=== PATIENT | male | born 1970 | race Caucasian/White ===

== ENCOUNTER 2017-10-25 18:37 | Inpatient (IN) | payer SELFPAY ==
[~2017-10-25] VITALS: Ht 170.2 cm; Wt 61.7 kg
[~2017-10-25 18:37] MED LIST: CLIN300C11 PO; DIPHEN/ATROPINE; GABA-529; LEVVL; NAPR-681
[2017-10-25] MEDS ORDERED: BACITRACIN ZINC OINT UDPKT TOP ONE (18:45)
[2017-10-25] MEDS ORDERED: LIDOCAINE HCL 1% 20ML VIAL (Pyxis) INJ MC ONE (18:45)
[2017-10-25 19:32] LABS: BASOPHILS % 1.5 % (0.0-2.0); EOSINOPHILS % 6.1 % (0.0-5.0); HEMOGLOBIN. 11.5 g/dL (14.0-18.0); LYMPHOCYTES % 22.1 % (20.0-50.0); MEAN CORPUSCULAR HEMOGLOBIN 28.5 pg (28.0-32.0); MEAN CORPUSCULAR VOLUME 84.7 fL (80.0-94.0); MEAN PLATELET VOLUME 8.9 fl (7.4-10.4); MONOCYTES % 8.5 % (2.0-8.0); NEUTROPHILS % 61.8 % (40.0-76.0); PLATELET 284 x1000/uL (130-400); RED BLOOD CELL COUNT 4.02 mill/uL (4.7-6.1); RED CELL DISTRIBUTION WIDTH 13.7 % (11.6-14.6)
[2017-10-25 19:38] LABS: CHLORIDE 105 mEq/L (98-107)
[2017-10-26] MEDS ORDERED: SODIUM CHLORIDE 0.9% 1,000 ML IV ONE (05:44)
[2017-10-26] MEDS ORDERED: MORPHINE SULFATE 4 MG/ML CPJ (NOT FOR IM USE) IV STA (05:44)
[2017-10-26] MEDS ORDERED: ONDANSETRON HCL 4MG/2ML VIAL IV STA (05:44)
[2017-10-26] MEDS ORDERED: VANCOMYCIN 1 G PREMIX 200 ML IV ONE (05:45)
[2017-10-26] MEDS ORDERED: PIPERACILLIN/TAZ 3.375G PREMIX 50 ML IV ONE (05:45)
[2017-10-26] MEDS ORDERED: ZOLPIDEM TARTRATE 5MG TABLET PO PRN (07:30)
[2017-10-26] MEDS ORDERED: DOCUSATE SODIUM 100MG CAPSULE PO PRN (07:30)
[2017-10-26] MEDS ORDERED: GUAIFENESIN 200MG/10ML SUGAR FREE UDC PO PRN (07:30)
[2017-10-26] MEDS ORDERED: ACETAMINOPHEN 325MG TABLET PO PRN (07:30)
[2017-10-26] MEDS ORDERED: KETOROLAC 15MG/ML VIAL IV PRN (07:30)
[2017-10-26] MEDS ORDERED: IPRATROPIUM/ALBUTEROL 0.5-3(2.5)MG/3ML NEB INH PRN (07:30)
[2017-10-26] MEDS ORDERED: ONDANSETRON HCL 4MG/2ML VIAL IV PRN (07:30)
[2017-10-26] MEDS ORDERED: MAGNESIUM/ALUMINUM HYDROXIDE/SIMETHICONE 30ML UDC PO PRN (07:30)
[2017-10-26] MEDS ORDERED: DIPHENHYDRAMINE 50MG/ML VIAL IV PRN (07:30)
[2017-10-26] MEDS ORDERED: NA PHOS,M-B/NA PHOS,DI-BA ENEMA 118ML PR PRN (07:30)
[2017-10-26] MEDS ORDERED: LORAZEPAM 0.5MG TABLET PO PRN (07:30)
[2017-10-26] MEDS ORDERED: CLONIDINE 0.1MG TABLET PO PRN (07:30)
[2017-10-26] MEDS ORDERED: FAMOTIDINE 20MG TABLET PO SCH (09:00)
[2017-10-26] MEDS ORDERED: PIPERACILLIN/TAZ 3.375G PREMIX 50 ML IV SCH (11:00)
[2017-10-26] MEDS ORDERED: VANCOMYCIN 1500MG in DEXTROSE 5% WATER 250ML IV SCH (12:00)
[2017-10-26] MEDS: ENOXAPARIN 40MG/0.4ML SYR SUBCUT SCH (12:10)
[2017-10-26] MEDS ORDERED: VANCOMYCIN 1 G PREMIX 200 ML IV SCH ×4 (14:00→21:00)
[2017-10-26] MEDS ORDERED: NITROGLYCERIN 0.4MG TABLET SL SL PRN ×2 (14:15→19:45)
[2017-10-26 17:00] VITALS: BP 139/76
[2017-10-26] MEDS ORDERED: DEXTROSE 50% WATER 50ML SYRINGE IV PRN (19:15)
[2017-10-26 20:00] VITALS: BP 132/75
[2017-10-26] MEDS ORDERED: OMEP20CA10 MT (20:15)
[2017-10-26] MEDS ORDERED: METF500T6 MT (20:15)
[2017-10-26] MEDS ORDERED: LOSA1TAB37 MT (20:15)
[2017-10-26] MEDS ORDERED: ASPI-1159 MT (20:15)
[2017-10-26] MEDS ORDERED: INSU100I24 SQ (20:15)
[2017-10-26] MEDS: INSULIN LISPRO 100 UNITS/ML SUBCUT SCH (21:00)
[2017-10-26] MEDS: BLOOD SUGAR DIAGNOSTIC STRIP TEST SCH (21:42)
[2017-10-26] MEDS: PIPERACILLIN/TAZ 3.375G PREMIX 50 ML IV SCH (21:54)
[2017-10-26] MEDS ORDERED: INSULIN GLARGINE UD 100 UNITS/ML SYR SUBCUT SCH (22:00)
[2017-10-26] MEDS ORDERED: VANCOMYCIN 1500MG in DEXTROSE 5% WATER 250ML IV NR (22:00)
[2017-10-27] VITALS: BP 124/62
[2017-10-27 04:00] VITALS: BP 112/63
[2017-10-27] MEDS: PIPERACILLIN/TAZ 3.375G PREMIX 50 ML IV SCH ×2 (05:15→09:31)
[2017-10-27] MEDS: BLOOD SUGAR DIAGNOSTIC STRIP TEST SCH ×2 (07:00→12:46)
[2017-10-27 08:00] VITALS: BP 110/59
[2017-10-27] MEDS: INSULIN LISPRO 100 UNITS/ML SUBCUT SCH ×2 (08:59→12:49)
[2017-10-27] MEDS ORDERED: VANCOMYCIN 1 G PREMIX 200 ML IV SCH (09:00)
[2017-10-27] MEDS: ENOXAPARIN 40MG/0.4ML SYR SUBCUT SCH (11:00)
[2017-10-27 12:00] VITALS: BP 127/69
[2017-10-27 14:56] VITALS: BP 141/81
[2017-10-27 16:00] VITALS: BP 124/98
[2017-10-27] MEDS ORDERED: PIPERACILLIN/TAZ 3.375G PREMIX 50 ML IV SCH (16:00)
== END 2017-10-27 15:50 | disposition home or self-care (01) | DRG 380 ==
LOC: ER 18:37 → 6EST 10-26 06:14 → ENRESERV 10-26 15:23
PROVIDERS: ADMIT Internal Medicine; ATTEND Internal Medicine
PROC: 0HQGXZZ Repair Left Hand Skin, External Approach (ICD-10-PCS; principal; 2017-10-26)
DX: E11.621 Type 2 diabetes mellitus with foot ulcer (principal); L97.529 Non-pressure chronic ulcer of other part of left foot with unspecified severity; E11.65 Type 2 diabetes mellitus with hyperglycemia; L03.032 Cellulitis of left toe; E83.51 Hypocalcemia; I10 Essential (primary) hypertension; F17.210 Nicotine dependence, cigarettes, uncomplicated; S61.217A Laceration without foreign body of left little finger without damage to nail, initial encounter; S61.211A Laceration without foreign body of left index finger without damage to nail, initial encounter; X58.XXXA Exposure to other specified factors, initial encounter; Y93.89 Activity, other specified; Y92.89 Other specified places as the place of occurrence of the external cause; Y99.8 Other external cause status; Z79.4 Long term (current) use of insulin; Z79.899 Other long term (current) drug therapy; Z89.421 Acquired absence of other right toe(s)
CPT/HCPCS: 12001; 36415; 71045; 73140; 73630; 80048; 82962; 83036; 83605; 85025; 87040; 87070; 87077; 87186; 87205; 96365; 96372; 99285; J1200; J1650; J1815; J1885; J2270; J2405; J2543; J3370; J3490; J7030; J7060

== ENCOUNTER 2019-12-11 13:58 | Emergency (ER) | payer MEDICAID, OTHER ==
[~2019-12-11] VITALS: Ht 170.2 cm; Wt 62.0 kg
[~2019-12-11 13:58] MED LIST changes: +ASPI-1497 MT; -DIPHEN/ATROPINE; -GABA-529; +INSU100I24 SQ; -LEVVL; +LOSA1TAB37 MT; +METF-414 MT; -NAPR-681; +OMEP20CA14 MT
[2019-12-11 14:52] LABS: BASOPHILS % 1.1 % (0.0-2.0); EOSINOPHILS % 8.2 % (0.0-5.0); HEMATOCRIT. 36.4 % (42.0-52.0); HEMOGLOBIN. 12.2 g/dL (14.0-18.0); MEAN CORPUSCULAR HEMOGLOBIN 29.1 pg (28.0-32.0); MEAN CORPUSCULAR VOLUME 87.4 fL (80.0-94.0); MEAN PLATELET VOLUME 9.2 fl (7.4-10.4); MONOCYTES % 7.6 % (2.0-8.0); NEUTROPHILS % 60.1 % (40.0-76.0); PLATELET 302 x1000/uL (130-400); RED BLOOD CELL COUNT 4.17 mill/uL (4.7-6.1); RED CELL DISTRIBUTION WIDTH 13.6 % (11.6-14.6)
[2019-12-11 14:57] LABS: CHLORIDE 111 mEq/L (98-107)
[2019-12-11 14:59] LABS: PROTHROMBIN TIME 10.2 sec (9.6-11.0)
[2019-12-11 15:02] LABS: C REACTIVE PROTEIN QUANT 0.6 mg/L (0.0-3.0)
[2019-12-11] MEDS ORDERED: SODIUM CHLORIDE 0.9% 1,000 ML IV ONE (15:09)
[2019-12-11] MEDS ORDERED: PIPERACILLIN/TAZ 3.375G PREMIX 50 ML IV ONE (15:15)
[2019-12-11] MEDS ORDERED: VANCOMYCIN 1 G PREMIX 200 ML IV SCH (15:15)
[2019-12-11 15:48] LABS: CLARITY URINE CLEAR (CLEAR); COLOR URINE YELLOW (YELLOW); KETONES URINE NEGATIVE (NEGATIVE); LEUKOCYTE ESTERASE URINE TRACE (NEGATIVE); NITRITE URINE NEGATIVE (NEGATIVE); OCCULT BLOOD URINE NEGATIVE (NEGATIVE); PROTEIN URINE 1+ (NEGATIVE); SPECIFIC GRAVITY URINE 1.012 (1.005-1.030); UROBILINOGEN URINE 0.2 E.U./dL (0.2-1.0)
[2019-12-11 19:40] VITALS: BP 149/88
== END 2019-12-11 19:50 | disposition short-term general hospital (02) ==
LOC: ER 13:58 → CANBEDREQ 21:04
DX: L03.116 Cellulitis of left lower limb (principal); E11.621 Type 2 diabetes mellitus with foot ulcer; I10 Essential (primary) hypertension; Z79.4 Long term (current) use of insulin; Z79.82 Long term (current) use of aspirin
CPT/HCPCS: 36415; 71045; 73610; 73630; 80053; 81003; 83605; 84145; 85025; 85610; 85651; 86140; 87040; 87086; 93005; 96365; 96367; 99285; J2543; J3370; J7030

== ENCOUNTER 2022-11-01 15:49 | Emergency (ER) | payer OTHER ==
[~2022-11-01] VITALS: Ht 170.2 cm; Wt 61.2 kg
[~2022-11-01 15:49] MED LIST changes: +CLIN-194 PO; -CLIN300C11 PO
[2022-11-01 16:01] VITALS: O2SAT 99
[2022-11-01 16:34] LABS: CHLORIDE 110 mEq/L (98-107)
[2022-11-01 16:35] LABS: HEMATOCRIT. 29.1 % (42.0-52.0); HEMOGLOBIN. 10.1 g/dL (14.0-18.0); MEAN CORPUSCULAR HEMOGLOBIN 29.7 pg (28.0-32.0); MEAN CORPUSCULAR VOLUME 85.8 fL (80.0-94.0); MEAN PLATELET VOLUME 10.8 fl (7.4-10.4); PLATELET 276 x1000/uL (130-400); RED CELL DISTRIBUTION WIDTH 16.7 % (11.6-14.6)
[2022-11-01] MEDS ORDERED: CALCIUM GLUCONATE 1GM PREMIX 50 ML IV SCH (18:00)
[2022-11-01] MEDS ORDERED: SODIUM CHLORIDE 0.9% 1,000 ML IV ONE (18:00)
[2022-11-01 18:44] LABS: PLATELET ESTIMATE NORMAL
[2022-11-01] MEDS ORDERED: DOXYCYCLINE 100 MG in DEXT 5% WATER 100 ML IV SCH (19:00)
[2022-11-01] MEDS ORDERED: MORPHINE SULFATE 2 MG/ML CPJ (NOT FOR IM USE) IV NR (19:00)
[2022-11-01 20:06] LABS: CLARITY URINE CLEAR (CLEAR); COLOR URINE DARK YELLOW (YELLOW); KETONES URINE NEGATIVE (NEGATIVE); LEUKOCYTE ESTERASE URINE TRACE (NEGATIVE); NITRITE URINE NEGATIVE (NEGATIVE); OCCULT BLOOD URINE NEGATIVE (NEGATIVE); PH URINE 5.5 (4.5-8.0); PROTEIN URINE 1+ (NEGATIVE); SPECIFIC GRAVITY URINE 1.015 (1.005-1.030)
[2022-11-02 04:20] VITALS: BP 110/57; PULSE 75; RESP 18; TEMP 98.5
== END 2022-11-02 04:38 | disposition short-term general hospital (02) ==
LOC: ER 15:49
DX: K80.50 Calculus of bile duct without cholangitis or cholecystitis without obstruction (principal); E11.9 Type 2 diabetes mellitus without complications; I10 Essential (primary) hypertension
CPT/HCPCS: 80053; 81003; 82010; 83690; 85025; 86850; 86900; 86901; 36415; 74176; 76705; 96361; 96365; 96375; 99285; J0610; J3490; J2270; J7060

== ENCOUNTER 2023-06-15 15:49 | Emergency (ER) | payer MEDICAID, OTHER ==
[~2023-06-15] VITALS: Ht 170.2 cm; Wt 60.0 kg
[2023-06-15 16:11] VITALS: O2SAT 99
[2023-06-15 16:51] LABS: BASOPHILS % 0.7 % (0.0-2.0); EOSINOPHILS % 2.8 % (0.0-5.0); HEMATOCRIT. 30.4 % (42.0-52.0); HEMOGLOBIN. 10.4 g/dL (14.0-18.0); LYMPHOCYTES % 11.4 % (20.0-50.0); MEAN CORPUSCULAR HEMOGLOBIN 28.2 pg (28.0-32.0); MEAN CORPUSCULAR HGB CONC 34.1 g/dL (31.0-37.0); MEAN CORPUSCULAR VOLUME 82.5 fL (80.0-94.0); MEAN PLATELET VOLUME 10.5 fl (7.4-10.4); MONOCYTES % 10.6 % (2.0-8.0); NEUTROPHILS % 74.5 % (40.0-76.0); PLATELET 433 x1000/uL (130-400); RED BLOOD CELL COUNT 3.69 mill/uL (4.7-6.1); RED CELL DISTRIBUTION WIDTH 17.6 % (11.6-14.6); WHITE BLOOD COUNT 12.1 x1000/uL (4.5-11.0)
[2023-06-15 17:01] LABS: PROTHROMBIN TIME 10.9 sec (9.6-11.0)
[2023-06-15 17:05] LABS: ALANINE AMINOTRANSFERASE 10 IU/L (10-49); ALBUMIN 2.9 g/dL (3.2-4.8); ASPARTATE AMINOTRANSFERASE 22 IU/L (<34); BILIRUBIN TOTAL 3.2 mg/dL (0.1-1.0); CARBON DIOXIDE 26 mEq/L (21-32); CHLORIDE 100 mEq/L (98-107); CREATININE 1.3 mg/dL (0.6-1.3); GLUCOSE 357 mg/dL (70-105); POTASSIUM 4.1 mEq/L (3.5-5.1); PROTEIN TOTAL 6.9 g/dL (6.0-8.3); SODIUM 132 mEq/L (136-145); UREA NITROGEN BLOOD 30 mg/dL (9-23)
[2023-06-15] MEDS ORDERED: MOM MT (21:15)
[2023-06-15] MEDS ORDERED: BISA-183 RC (21:20)
[2023-06-15] MEDS ORDERED: FURO-152 MT (21:41)
[2023-06-15 21:52] VITALS: BP 120/70; PULSE 70; RESP 18; TEMP 98.2
== END 2023-06-15 21:56 | disposition left against medical advice (07) ==
LOC: ER 15:49
DX: R10.13 Epigastric pain (principal); E11.9 Type 2 diabetes mellitus without complications; I10 Essential (primary) hypertension; Z79.899 Other long term (current) drug therapy
CPT/HCPCS: 36415; 71045; 74176; 80053; 83880; 85025; 99284